=== PATIENT | female | born 1990 | race Caucasian/White ===

== ENCOUNTER 2022-11-29 03:29 | Outpatient (CLI) | payer BC, SELFPAY ==
[2022-11-29 16:01] LABS: Abs Immature Grans 0.02 10^3/uL (0.0-0.06); Absolute Basophil Count 0.05 10^3/uL (0.0-0.2); Absolute Eosinophil Count 0.15 10^3/uL (0.0-0.7); Absolute Lymphocyte Count 1.83 10^3/uL (1.2-3.4); Absolute Monocyte Count 0.98 10^3/uL (0.1-0.8); Absolute Neutrophil Count 4.96 10^3/uL (1.2-6.7); Basophils % 0.6; Eosinophils % 1.9; HCT 39.1 % (36.0-46.0); HGB 13.2 g/dL (11.2-15.7); Immature Grans % 0.3; Lymphocytes % 22.9; MCH 29.1 pg (27.0-33.0); MCHC 33.8 % (32.0-36.0); MCV 86 fL (80-95); MPV 10.7 fL (8.0-11.0); Monocytes % 12.3; Platelet Count 233 10^3/uL (130-400); RBC 4.54 10^6/uL (3.93-5.22); RDW 12.7 % (11.7-14.6); WBC 7.99 10^3/uL (4.4-10.8)
[2022-11-29 16:06] LABS: Panorama Kit Sent via Fed Ex
[2022-12-01 11:00] LABS: Hepatitis B Surface Ag Negative (Negative)
[2022-12-01 11:11] LABS: Varicella IgG Antibody Positive (See Note)
[2022-12-01 11:17] LABS: Rubella IgG Ab (UVM) Positive (See Note)
[2022-12-01 11:30] LABS: Hepatitis C Ab w Rflx HCV PCR Negative (Negative)
[2022-12-01 12:01] LABS: HIV-1/2 Ag & Ab Screen Negative (Negative)
[2022-12-01 19:33] LABS: Syphilis IgG w/Reflex Nonreactive (Nonreactive)
== END 2022-11-29 03:30 | disposition home or self-care (01) ==
LOC: LBO 03:29
PROVIDERS: Advanced Practice Midwife; Visit Provider Advanced Practice Midwife
DX: Z34.01 Encounter for supervision of normal first pregnancy, first trimester (principal)
CPT/HCPCS: 36415; 86787; 86803; 86850; 86900; 86901; 87340; 87389; 85025; 86762; 86780

== ENCOUNTER 2022-11-29 14:40 | Outpatient (REF) | payer BC, SELFPAY ==
[2022-11-29 19:39] LABS: *AMPHETAMINES SCREEN URINE Negative (Negative); *BARBITURATES SCREEN URINE Negative (Negative); *BENZODIAZEPINES SCREEN URINE Negative (Negative); Cannabinoids THC Negative (Negative); Cocaine Screen,Urine Negative (Negative); METHADONE URINE SCREEN Negative (Negative); OPIATES URINE SCREEN Negative (Negative)
[2022-11-29 19:44] LABS: Tricyclic Antidepressants Negative (Negative)
[2022-12-01 13:31] LABS: Chlamydia Result Negative (Negative); GC Result Negative (Negative)
[2022-12-07 12:20] LABS: Buprenorphine Negative ng/mL (Cutoff: 5.0); Norbuprenorphine Negative ng/mL (Cutoff: 2.5)
== END 2022-11-29 14:41 | disposition home or self-care (01) ==
LOC: LBN 14:40
PROVIDERS: Visit Provider Advanced Practice Midwife
DX: N89.8 Other specified noninflammatory disorders of vagina; O26.891 Other specified pregnancy related conditions, first trimester
CPT/HCPCS: 80307; 80348; 87491; 87591; 87086; 87480; 87510; 87660

== ENCOUNTER → 2023-02-02 00:52 | Outpatient (CLI) | payer BC, SELFPAY ==
--- NOTE | 2023-02-02 06:32 | DI.US_ITS ---
Exam(s) US OB 2-3 TRIMESTER W MOD EXAM: US OB 2-3 TRIMESTER W MOD CLINICAL HISTORY: ,Z34.90. TECHNIQUE: Transabdominal obstetrical ultrasound was performed. COMPARISON: US POCUS EXAM from 11/15/2022 FINDINGS: There is a single viable intrauterine gestation with cardiac activity identified-140 bpm. Amniotic fluid: There is a normal amount of amniotic fluid. Placental location: The placenta is posterior fundal grade 0,with no evidence of placenta previa. ANATOMY: A 3 vessel umbilical cord is seen. A four-chamber cardiac view was obtained. Right and left ventricular outflow tracts were imaged. There are no obvious abnormalities of the spinal column evident. There is no obvious abnormal ity of the anterior abdominal wall. stomach and urinary bladder are identified and there is no evidence of hydronephrosis. No abnormalities of the upper lip region are identified. Due to the deep cephalic lie of the fetus during today's study was difficult to adequately visualize intracranial structures such as the ventricles and posterior fossa. Dating parameters place this at approximately 19 weeks and 5 days gestational age. BPD measures 19 weeks and 5 days HC measures 19 weeks and 4 days AC measures 19 weeks and 6 days FL measures 19 weeks and 6 days Estimated weight is 314 gm-0 pounds 11 ounces Fetus is at the 76th percentile on the Hadlock scale. IMPRESSION:: Single viable intrauterine gestation which is approximately 19 weeks and 5 days gestati onal age, implying an PATITO of 06/24/2023. There are no obvious anomalies evident on today's study. However, we were not able to adequatel y visualize intracranial structures the fetus due to the persistent deep cephalic lie of the fetus du ring today's study. Patient is to return for better visualization of the brain/lateral ventric les/posterior fossa structures. The placenta is posterior fundal grade 0, with no evidence of placenta previa. There is a normal amount of amniotic fluid. DATA REPOSITORY:
== END ==
PROVIDERS: Visit Provider Advanced Practice Midwife
DX: Z34.92 Encounter for supervision of normal pregnancy, unspecified, second trimester (principal)
CPT/HCPCS: 76805

== ENCOUNTER 2023-02-02 01:21 | Outpatient (CLI) | payer BC, SELFPAY ==
[2023-02-04 13:09] LABS: Calculated age at EDD 32 years; GA used in risk estimate Dates estimate; IVF Pregnancy No; Initial or repeat testing Initial testing; Insulin dependent diabetes No; Maternal Weight 160 lbs; Number of Fetuses 1; Prev Pregnancy w/NTD No; RECOMMENDED FOLLOW UP None.; Results Summary Normal risk
== END 2023-02-02 01:22 | disposition home or self-care (01) ==
LOC: LBO 01:22
PROVIDERS: Visit Provider Advanced Practice Midwife
DX: Z34.92 Encounter for supervision of normal pregnancy, unspecified, second trimester (principal); Z36.89 Encounter for other specified antenatal screening; Z3A.19 19 weeks gestation of pregnancy
CPT/HCPCS: 36415; 82105

== ENCOUNTER 2023-03-30 01:30 | Outpatient (CLI) | payer BC, SELFPAY ==
[2023-03-30 09:43] LABS: HCT 37.2 % (36.0-46.0); HGB 12.2 g/dL (11.2-15.7); MCH 28.6 pg (27.0-33.0); MCHC 32.8 % (32.0-36.0); MCV 87 fL (80-95); MPV 10.2 fL (8.0-11.0); Platelet Count 215 10^3/uL (130-400); RBC 4.27 10^6/uL (3.93-5.22); RDW 12.8 % (11.7-14.6); RDW-SD 40.8 fL; WBC 10.67 10^3/uL (4.4-10.8)
[2023-03-30 10:17] LABS: Glucose,1 Hr (Glucola) 88 mg/dL (80-140)
== END 2023-03-30 01:31 | disposition home or self-care (01) ==
LOC: LBO 01:30
PROVIDERS: Advanced Practice Midwife; Visit Provider Advanced Practice Midwife
DX: Z34.92 Encounter for supervision of normal pregnancy, unspecified, second trimester (principal); Z3A.27 27 weeks gestation of pregnancy
CPT/HCPCS: 36415; 82950; 85027

== ENCOUNTER → 2023-06-01 00:47 | Outpatient (CLI) | payer BC, SELFPAY ==
--- NOTE | 2023-06-01 07:45 | DI.US_ITS ---
Exam(s) US OB LUZ WEIGHT EXAM: US OB LUZ WEIGHT CLINICAL HISTORY: measuring size less than dates,O26.849. TECHNIQUE: Transabdominal obstetrical ultrasound was performed. COMPARISON: US US OB F/U FACIAL/LVOT/RVOT from 02/08/2023 FINDINGS: There is a single viable intrauterine gestation with cardiac activity identified-137 bpm The fetus is presently in cephalic position . Amniotic fluid: There is a normal amount of amniotic fluid with an LUZ of 12.09cm. Placental location: The placenta is posterior grade 2. [address] this at approximately 36 weeks and 1 day gestational age, implying PATITO of 06/28/2023. BPD measures 36 weeks and 6 days HC measures 37 weeks and 3 days AC measures 34 weeks and 6 days FL measures 35 weeks and 1 day Estimated weight is 2673 gm-5 pounds 14 ounces Fetus is at the 29th percentile on the Hadlock scale. IMPRESSION:: Viable 3rd trimester gestation, as described above. DATA REPOSITORY:
== END ==
PROVIDERS: PCP Student in an Organized Health Care Education/Training Program; Visit Provider Advanced Practice Midwife
DX: O26.843 Uterine size-date discrepancy, third trimester (principal); Z3A.36 36 weeks gestation of pregnancy
CPT/HCPCS: 76816

== ENCOUNTER 2023-06-02 16:10 | Outpatient (REF) | payer BC, SELFPAY | END 2023-06-02 16:11 | disposition home or self-care (01) | LOC: LBN 16:10 | PROVIDERS: PCP Student in an Organized Health Care Education/Training Program; Visit Provider Advanced Practice Midwife | DX: Z34.93 Encounter for supervision of normal pregnancy, unspecified, third trimester (principal); Z36.85 Encounter for antenatal screening for Streptococcus B; Z3A.36 36 weeks gestation of pregnancy | CPT/HCPCS: 87081 ==

== ENCOUNTER → 2023-06-10 00:36 | Outpatient (CLI) | payer BC, SELFPAY ==
--- NOTE | 2023-06-10 06:45 | DI.US_ITS ---
Exam(s) US OB LUZ WEIGHT EXAM: US OB LUZ WEIGHT CLINICAL HISTORY: measuring 32 cm at 37 weeks,inconsistent size,dates,O26.843. TECHNIQUE: Transabdominal obstetrical ultrasound was performed. COMPARISON: US US OB LUZ WEIGHT from 06/01/2023 FINDINGS: There is a single viable intrauterine gestation with cardiac activity identified-135 bpm The fetus is presently in cephalic position . Amniotic fluid: There is a low normal amount of amniotic fluid with an LUZ of 7.63cm. The previous r eading on 06/01/2023 was 12.09 cm Placental location: The placenta is anterior/posterior/fundal, grade 2,with no evidence of placenta p revia. Dating parameters place this at approximately 37 weeks gestational age, implying PATITO of . BPD measures 37 weeks and 4 days HC measures 37 weeks and 6 days AC measures 36 weeks and 0 days FL measures 36 weeks and 3 days Estimated weight is 2943 gm-6 pounds 8 ounces Fetus is at the 30th percentile on the Hadlock scale. IMPRESSION:: Viable 3rd trimester gestation, as described above. Fetus is at the 30th percentile on the Hadlock scale. The amount of amniotic fluid is low normal with LUZ of 7.63 cm DATA REPOSITORY:
== END ==
PROVIDERS: PCP Student in an Organized Health Care Education/Training Program; Visit Provider Advanced Practice Midwife
DX: O26.843 Uterine size-date discrepancy, third trimester (principal); Z3A.37 37 weeks gestation of pregnancy
CPT/HCPCS: 76816

== ENCOUNTER 2023-06-15 12:21 | Outpatient (CLI) | payer BC, SELFPAY ==
[2023-06-15 15:39] VITALS: BP 122/61; PULSE 62
[2023-06-15 16:39] VITALS: BP 122/61; PULSE 62; TEMP 36.6
--- NOTE | 2023-06-21 17:26 | W.OBNST ---
Date of service: 06/21/23 Time of Service: 17:26 NST Evaluation Reason for NST Reasons for Nonstress Test: OTHER, SEE COMMENT Reason for NST Other: No increase in fundal height, LUZ Gestational Age Gestational Age in Weeks and Days: 38 Weeks and 2Days Test and Monitor Explained Test/Monitor Explained: Test Explained, Monitor Explained and Patient Verbalized Understanding Vital Signs Blood Pressure: 122/61 Pulse: 62 Temperature: 97.9 F NST Information Date on Monitor: 06/15/23 Time on Monitor: 16:30 Date off Monitor: 06/15/23 Time off Monitor: 16:50 Total Time on Monitor: 20 NST Interventions: Notify Provider and Other Contraction Frequency: 0 NST Evaluation Patient States Movement: Present FHR Baseline: 140 Variability: Moderate 6-25 bpm Accelerations: 15x15 Decelerations: None NST Results: Reactive Note Ultrasound Done: LUZ (exam performed by Jackie Garsia CNM) Indication: Other (size less than dates) Total LUZ: 8.1 Coding for LUZ w/NST: Completed Exam. NST Note Note: Santa is here for NST due to size less than dates. reactive NST. NST Reviewed and Verified by: Karolyn May
[2023-06-21 17:27] VITALS: BP 122/61; PULSE 62; TEMP 36.6
--- NOTE | 2023-06-29 09:56 | W.OBNST ---
Date of service: 06/15/23 Time of Service: 16:00 NST Evaluation Reason for NST Reasons for Nonstress Test: OTHER, SEE COMMENT Reason for NST Other: No increase in fundal height, LUZ Gestational Age Gestational Age in Weeks and Days: 39 Weeks and 5Days Test and Monitor Explained Test/Monitor Explained: Test Explained, Monitor Explained and Patient Verbalized Understanding Vital Signs Blood Pressure: 122/61 Pulse: 62 Temperature: 97.9 F NST Information Date on Monitor: 06/15/23 Time on Monitor: 16:30 Date off Monitor: 06/15/23 Time off Monitor: 16:50 Total Time on Monitor: 20 NST Interventions: Notify Provider and Other Contraction Frequency: 0 NST Evaluation Patient States Movement: Present FHR Baseline: 140 Variability: Moderate 6-25 bpm Accelerations: 15x15 Decelerations: None NST Results: Reactive Note Ultrasound Done: LUZ Total LUZ: 8.1 Coding for LUZ w/NST: Completed Exam and Presentation Presentation Results: cephalic Coding for Presentation w/NST: Completed Exam. NST Note NST Reviewed and Verified by: Sangeetha Garsia
[2023-06-29 09:58] VITALS: BP 122/61; PULSE 62; TEMP 36.6
== END 2023-06-15 16:58 ==
LOC: BCD 12:22 → OBS 15:32
PROVIDERS: PCP Student in an Organized Health Care Education/Training Program; Visit Provider Advanced Practice Midwife
DX: O26.843 Uterine size-date discrepancy, third trimester (principal); Z3A.38 38 weeks gestation of pregnancy
CPT/HCPCS: 59025

== ENCOUNTER 2023-06-25 10:22 | Inpatient (IN) | payer BC, SELFPAY ==
[2023-06-25] VITALS (70 sets, daily range): BP systolic 101–131; BP diastolic 50–83; PULSE 64–111; RESP 16; TEMP 36.3–36.6; O2SAT 97–100; BMI 26.7
[2023-06-25 10:58] LABS: HGB 13.1 g/dL (11.2-15.7); MCHC 32.8 % (32.0-36.0); MCV 89 fL (80-95); MPV 12.3 fL (8.0-11.0); Platelet Count 185 10^3/uL (130-400); RBC 4.52 10^6/uL (3.93-5.22); RDW 12.6 % (11.7-14.6); RDW-SD 40.9 fL; WBC 13.18 10^3/uL (4.4-10.8)
--- NOTE | 2023-06-25 11:34 | HPE_ITS ---
Date of service: 06/25/23 Time of Service: 10:15 Assessment and Plan Assessment and plan (1) Normal labor: Status: Acute Assessment and plan: A: 32 yo G1 @ 39+5 wks, spontaneous onset labor Category 1 tracing, GBS neg, AGA size No increased risk for SD or PPH; benign AP course Pt attended by FOB and recreation adviser Has been taking buspirone for depression/anxiety P: Admit to BC, CBC, T&S Pt desires unmedicated experience Comfort measures as desires, intermittent auscultation Expectant management, anticipate OB-HPI Labor/Delivery History of Present Illness Reason for Visit: Labor Chief Complaint: Uterine Contractions (contractions began 2200 last night, now stronger. No ROM or bleeding or vomiting.). PATITO Calculator Estimated Delivery Date Method Current WG Current Estimate 06/27/23 LMP (Certain) 39w 5d Other Estimates 06/25/23 Ultrasound #1 40w 0d History of Present Expected Delivery Route/Plan - CNM FOB/ - Gaurang Nini (first baby) BG Hiring a recreation adviser, took empowered birthing classes, epidural if she needs it. Gaurang would like to catch the baby. GBS negative Specific Issues/Plan 1. Anxiety/depression, takes Buspirone, advised to stop prn Ativan while . 1a. Wellbutrin escribed 11/16/[address] Lani Syed at [facility] for consultation. Met with Santa Rowell. 2. Panorama drawn 11/29- low risk x5, undecided at this time about CF/SMA. AFP=normal risk 3. Covid infection at 13 weeks gestation - paxlovid escribed 4. Anatomy incomplete, repeated and normal brain images obtained 5. US for size date discrepency 36 weeks LUZ 12.09 EFW 29% 5a. US for size date 06/09/23 EFW 30% LUZ 7.63 5b. NST at 38 wks reactive, LUZ=8.1 Assessment: History Reviewed & Current Review of Systems Narrative: ROS completed and noncontributory other than HPI PFSH All Active Problems (Updated 06/25/23 @ 11:38 by Sangeetha Garsia) Normal labor (Acute) Pelvic floor weakness in female (Acute) (Acute) Generalized anxiety disorder (Acute) Adjustment disorder with depressed mood (Acute) Medical History (Updated 06/25/23 @ 11:38 by Sangeetha Garsia) Uterine size date discrepancy Vaginal discharge during Size of fetus inconsistent with dates in third trimester Family History (Updated 06/17/23 @ 16:08 by Kelsea Rowell) Mother Hypertension Depression Anxiety Father Alcohol use disorder Paternal Grandfather Stroke Maternal Grandfather Aneurysm Paternal Grandmother Aneurysm Alcohol use disorder Substance use disorder Maternal Grandmother Parkinson disease Social History (Updated 06/17/23 @ 16:05 by Kelsea Rowell) Smoking/Tobacco Use Status: Never Second Hand Exposure: No Smoking risk assessment performed?: Yes Alcohol Intake: former Drug use: Never Adopted: No Caregiver/Support person: No Foster care: No Household members: spouse Housing: house Communication Needs: Corrective Lenses Education Level: master's degree Do you need help understanding health information?: Never current occupation: [employer] Pets and animals: Yes (2 Dogs) Sexually active: Yes Do you think of yourself as: bisexual Current gender identity: female What is your relationship status?: How often do you talk on the phone with friends or family?: three or more times per week How often do you get together with friends or relatives?: once per week Do you belong to any clubs or organized social groups?: yes Panel score (0-1 are the most socially isolated patients): 3 What type of physical activity do you participate in: bicycling, weight lifting, running and yoga Duration: 45-60 minutes/day Frequency: 3-4 times per week Paula/Nondenominational: L[employer] Special paula needs: No Seatbelt use: always Helmet use: Yes Drive intox or ride w/intox cmv driver: No History History 1 Para 0 Hx # Term Pregnancies 0 Multiple births 0 Hx # Pregnancies 0 Ectopic pregnancies 0 AB induced 0 Hx Number of Living Children 0 AB spontaneous 0 Meds Allergies and Home Medications Allergies Allergy/AdvReac Type Severity Reaction Status Date / Time cashew nut Allergy Other (See Verified 06/23/23 15:27 Comment) Home Medications Medication Instructions Recorded Confirmed Type buspirone 15 mg tablet 15 mg PO BID 11/15/22 06/15/23 History epinephrine 0.3 mg/0.3 mL 0.3 mg IM ONCE 11/15/22 06/15/23 History injection, auto-injector vitamin#30 30 mg iron-10 cap PO 11/15/22 06/15/23 History mg iron-folic acid 1 mg-omg3 capsule breast pump (Baby Breast #1 ea 05/26/23 06/15/23 Rx Pump) bupropion HCl 150 mg 24 hr tablet, See Rx Instructions .Route 06/21/23 Rx extended release .COMPLEX #30 tabs Exam Physical Exam Vital signs: Temp 97.3 F L 06/25/23 10:30 Vital Signs Reviewed: Yes Detailed Labor and Delivery Exam Dilation: 5 (per RN exam) Effacement (%): 80 station: -2 Cervix position: mid TORRES Score(Cervical Ripeness Score): 8 Amniotic Membrane Status: Intact Contraction Frequency(min): q3-4 Fetus A Heart Rate Baseline: 115 Monitor Accelerations: 15 X 15 Monitor Decelerations: None Variability: Moderate (6-25 BPM) Categories: Category I Est. Weight: 7 lb 0.877 oz Est. Weight: 3200 gms HEENT Exam HEENT Exam: Normal Neck Exam Neck Exam: Normal Chest/Brest/Axilla Exam Chest Exam: Normal Breast Exam Breast Exam: Not Done Respiratory Exam Respiratory Exam: Normal Cardiovascular Exam Cardiovascular Exam: Normal Abdominal Exam Abdominal Exam: Normal (gravid, nontender) Rectal Exam Rectal Exam: Normal Exam Exam: Normal Extremities Exam Extremities Exam: Normal Back/Spine/Pelvis Exam Back Exam: Normal Pelvis Adequate: Yes Skin Exam Skin Exam: Normal Neurological Exam Neurological Exam: Normal Psychiatric Exam Psychiatric Exam: Normal Results Results Group Beta Strep: Negative Blood Type: A+ Rubella Status: Immune Varicella Immunity: Immune Abnormal Lab Findings: Abnormal Labs 06/25/23 10:40 WBC 13.18 H MPV 12.3 H Risk Assessment Risk for Shoulder Dystocia Historical/Initial OB: NEGATIVE FOR: Pelvic Abnormality, Pre- BMI>30, Previous Shoulder Dystocia or Previous Macrosomia 36 Weeks: NEGATIVE FOR: Current Gestational DM, EFW>4500gms or Maternal Weight Gain>40lbs Increased Risk?: No Delivery Plan @ 36wks: Risk for Pre-Eclampsia Date Initiated/Initials: Km 11/29/22 Yes, if one or more: NEGATIVE FOR: Hx Pre-E/Gest HTN, Chronic HTN, Multiple Gestation, Pre-gestational DM, Renal Disease, Systemic Lupus or APA Syndrome Yes, if 2 or more: POSITIVE FOR: Nulliparity; NEGATIVE FOR: Age>= 35 yrs, >10yr btwn pregnancies, BMI>30, ethinicty, Mother/Sister w/ Pre-E or Previous IUGR Risk for Post- Hemorrhage Initial: NEGATIVE FOR: Multiple Gestation, Previous PPH, Known Clotting Deficiency, Grand Multiparity or Anticoagulation 36 Weeks: NEGATIVE FOR: Anemia, hgb<10, Low platelets(thrombocytopenia), Gestational HTN or Pre-E, Polyhydraminios or EFW>4500gms At Risk?: No Counseled re: Active Management: Yes Risks Reviewed Risks Reviewed Upon Admission: Yes
--- NOTE | 2023-06-25 13:13 | W.PM.OBNL1 ---
Date of service: 06/25/23 Time of Service: 13:13 Pelvic Exam Dilation: 2.5 (exam done by CNM prior to pt entering tub) Effacement (%): 80 station: -2 Cervix Position: posterior BISHOPS Score(Cervical Ripeness Score): 6 Assessment and Plan Assessment and plan (1) Normal labor: Status: Acute Assessment and plan: Cervical exam revision per CNM: 2-3/80% posterior, vtx -2, intact Scmhidt score @ 6, pt coping well with early labor discomfort Pt decided against tub until labor more advanced, ambulating well Objective Abnormal lab results 06/25/23 Range/Units 10:40 WBC 13.18 H (4.4-10.8) 10^3/uL MPV 12.3 H (8.0-11.0) fL Temp 97.3 F L 06/25/23 10:30 Laboratory Results WBC 13.18 10^3/uL (4.4-10.8) H 06/25/23 10:40 RBC 4.52 10^6/uL (3.93-5.22) 06/25/23 10:40 Hgb 13.1 g/dL (11.2-15.7) 06/25/23 10:40 Hct 40.0 % (36.0-46.0) 06/25/23 10:40 MCV 89 fL (80-95) 06/25/23 10:40 MCH 29.0 pg (27.0-33.0) 06/25/23 10:40 MCHC 32.8 % (32.0-36.0) 06/25/23 10:40 RDW 12.6 % (11.7-14.6) 06/25/23 10:40 Plt Count 185 10^3/uL (130-400) 06/25/23 10:40 MPV 12.3 fL (8.0-11.0) H 06/25/23 10:40 ABO/Rh A Positive 06/25/23 10:40 Antibody Screen NEGATIVE 06/25/23 10:40
--- NOTE | 2023-06-25 19:26 | PGE_ITS ---
Date of service: 06/25/23 Time of Service: 19:26 Informed Consent Informed Consent: Regional Anesthesia and Risk,Benefits,Alternatives Discussed Pelvic Exam Dilation: 4 Effacement (%): 90 station: -1 Cervix Position: mid Consistency: soft BISHOPS Score(Cervical Ripeness Score): 10 Contractions Monitor Mode: Palpation Contraction Frequency(min): q2-4 Intensity: Moderate Fetus A Heart Rate Baseline: 140 Variability: Moderate (6-25 BPM) Categories: Category I Accelerations: 15 X 15 Decelerations: None Amniotic Membrane Status: Intact Assessment and Plan Assessment and plan (1) Normal labor: Status: Acute Assessment and plan: A: Primipara requesting regional anesthesia Labor becoming active, category 1 tracing, membranes intact P: 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 She now feels she is tiring and would like an epidural after learning she is 4 cm dilated.
[2023-06-25] MEDS: Lactated Ringers 1,000 ML 125 ML IV (19:50)
[2023-06-25] MEDS: busPIRone 15 MG TAB PO (20:05)
[2023-06-25] MEDS: FentaNYL/ROPIvacaine 2 mcg/ml and 0.1% 200 ML CADD Cassette EP (20:45)
--- NOTE | 2023-06-25 20:56 | ANES.PREOP_ITS ---
General Info Date of Service Date Performed: 06/25/23 Height: 5 ft 11 in Weight: 87.09 kg Body Mass Index (BMI): 26.7 Meds Allergies and Home Medications Allergies Allergy/AdvReac Type Severity Reaction Status Date / Time cashew nut Allergy Other (See Verified 06/23/23 15:27 Comment) Home Medication Medication Instructions Recorded buspirone 15 mg tablet 15 mg PO BID 11/15/22 epinephrine 0.3 mg/0.3 mL 0.3 mg IM ONCE 11/15/22 injection, auto-injector vitamin#30 30 mg iron-10 cap PO 11/15/22 mg iron-folic acid 1 mg-omg3 capsule breast pump (Baby Breast #1 ea 05/26/23 Pump) bupropion HCl 150 mg 24 hr tablet, See Rx Instructions .Route 06/21/23 extended release .COMPLEX #30 tabs Current Visit Medications: Current Medications Generic Name Dose Route Start Last Admin Trade Name Freq PRN Reason Stop Dose Admin Bupropion HCl 150 mg 06/26/23 08:30 Bupropion-Xl 150 Mg Tabcr PO DAILY LUIS Buspirone HCl 15 mg 06/25/23 20:00 Buspirone 15 Mg Tab PO BID LUIS Fentanyl/Ropivacaine 200 ml 06/25/23 20:00 Fentanyl/Ropivacaine 2 Mcg/Ml And 0.1% 200 Ml Cadd Cassette EP DIRECTED LUIS Ringer's Solution 1,000 mls @ 125 mls/hr 06/25/23 20:00 IV INFUSION LUIS IV Miscellaneous Supplies 1 each 06/25/23 20:00 Iv Access IV DIRECTED LUIS Sodium Chloride 0 ml 06/25/23 19:53 Normal Saline Flush 10 Ml Syr IVP PRN PRN Sodium Chloride 0 ml 06/25/23 20:00 Normal Saline Flush 10 Ml Syr IVP BID LUIS Sodium Chloride 0 ml 06/25/23 19:53 Normal Saline 10 Ml Vial IJ DIRECTED PRN PFSH Active Problems Active Problems: Problem Status Onset Code Normal labor O80, Z37.9 Pelvic floor weakness in female N81.89 Z34.90 Generalized anxiety disorder F41.1 Adjustment disorder with depressed mood F43.21 Medical History Medical History (Updated 06/25/23 @ 11:38 by Sangeetha Garsia) Uterine size date discrepancy Vaginal discharge during Size of fetus inconsistent with dates in third trimester Tobacco Smoking/Tobacco Use Status: Never Second hand exposure: No Alcohol Alcohol Intake: former Substance Use Substance use: Never Prental History History 2 1 Para 0 Hx # Term Pregnancies 0 Multiple births 0 Hx # Pregnancies 0 Ectopic pregnancies 0 AB induced 0 Hx Number of Living Children 0 AB spontaneous 0 Vital Signs and Lab Results Vital Signs Most Recent Vital Signs in EMR: Most Recent Vital Signs Temp Pulse Resp BP Pulse Ox 36.6 C 111 H 16 124/82 100 06/25/23 17:30 06/25/23 20:53 06/25/23 17:30 06/25/23 20:53 06/25/23 20:51 Lab Results 06/25/23 10:40 Blood Type / Crossmatch: 2 Antibody Screen NEGATIVE 06/25/23 Complete Blood Count: 2 White Blood Count 13.18 10^3/uL (4.4-10.8) H 06/25/23 10:40 Red Blood Count 4.52 10^6/uL (3.93-5.22) 06/25/23 10:40 Hemoglobin 13.1 g/dL (11.2-15.7) 06/25/23 10:40 Hematocrit 40.0 % (36.0-46.0) 06/25/23 10:40 Platelet Count 185 10^3/uL (130-400) 06/25/23 10:40 Complete Metabolic Panel: 2 No Data to Display Liver Function Panel: 2 No Data to Display Coagulation Panel: 2 No Data to Display Cardiac Panel: 2 No Data to Display Arterial Blood Gas: 2 No Data to Display Venous Blood Gas: 2 No Data to Display Pancreas Panel: 2 No Data to Display Thyroid Panel: 2 No Data to Display Infectious Disease: 2 No Data to Display Blood Cultures: 2 No Data to Display Toxicology Panel: 2 No Data to Display Panel: 2 No Data to Display Anesthesia Assessment and Plan Anesthesia History Personal History: No History of Anesthesia Complications Family History: No Family History of Anesthesia Complications Exercise Tolerance Exercise Tolerance: Metabolic Equivalents>4 Pertinent Negatives Pertinent Negatives: No Symptoms of GERD Cardiac & Pulmonary Exam Cardiac Exam: Normal S1/S2 Heart Sounds Pulmonary Exam: Clear Bilateral Breath Sounds Implantable Cardiac Device Does patient have a Pacemaker or an ICD?: No Airway Exam Known Difficult Airway: No Mallampati Class: 1 Mouth Opening: Normal (> 3cm) Thyromental Distance: Greater than 3 cm Neck Range of Motion: Full ROM Neck Circumference: Normal Teeth Condition: Normal Dentition ASA Classification ASA Score: ASA 2 Emergency Case?: No NPO Status NPO Status: Unable to Assess Status Status: Confirmed (Full-Term, Laboring) Anesthesia Plan Resuscitation Status: Full Code Anesthesia Technique: Labor Epidural Airway Planned: Natural Airway Pain Management: Epidural Monitors Used: Standard Monitors
--- NOTE | 2023-06-25 20:58 | W.ANESNEU ---
Epidural/Spinal Catheter Date Performed: 06/25/23 Procedure Start: 20:20 Procedure Stop: 20:45 Requesting Provider: Sangeetha Garsia Procedure Location: Obstetrics (Rm 301) Reason Performed: Labor Epidural Standard Monitors Applied: ECG, Blood Pressure and SpO2 Patient Position: Sitting Sedation Given (Indicate Dose Given): No Sedation given Patient Mental Status: Awake Sterility: Hand Hygiene, Surgical Cap, Surgical Mask, Sterile Gloves, Sterile Drape/Sheet, Eye Protection and Chlorhexidine Procedure Location: L2-L3 Interspace Epidural Needle: Tuohy 18 Gauge Needle Length: 3.5 Inch Needle Approach: Midline Epidural Procedure: Skin Prepped, Sterile Drape Placed, 1% Lidocaine to skin and subcutaneous tissue with 25G needle, Tuohy Needle placed, STORMY to Saline Used, Epidural Catheter Placed, Negative Heme, Negative CSF Flow and Tuohy Needle Removed Catheter Placed?: Catheter Placed Test Dose (Indicate Dose Given): 3ml 1.5% Lidocaine with 1:200K Epinephrine Given and Negative Test Dose Loss of Resistance Depth (cm): 4 Catheter depth at skin (cm): 11 Dressing: Sorbaview Dressing Placed, Tegaderm Applied, Mastisol Used and Dressing reinforced with Tape Epidural Provider Bolus (Indicate Dose Given): Total Ropivacaine 0.1% with Fentanyl 2mcg/ml Given from pump. (ml) Dose:: 8cc Additives (Indicate Dose Given ): None Infusion Medication: Medication Infusion Began Medication Infusion: Ropivacaine 0.1% with Fentanyl 2mcg/ml Maintenance Infusion Rate (ml/hour): 11 PCEA Bolus Dose (ml): 5 Post Procedure Pain score (0-10): 1 Block Level: T7 Paresthesia: None Ultrasound: Used to john site Number of Attempts (See previous attempts in note section): 1 Procedure Tolerated: No Complications and Patient tolerated well Procedure Outcome: Successful Performed By: Gaurang Mosley
--- NOTE | 2023-06-25 21:45 | W.PM.OBNL1 ---
Date of service: 06/25/23 Time of Service: 21:45 Informed Consent Informed Consent: Regional Anesthesia and Risk,Benefits,Alternatives Discussed Contractions Monitor Mode: External Contraction Frequency(min): q3-5 Intensity: Moderate Fetus A Monitor: External (US) Heart Rate Baseline: 135 Variability: Moderate (6-25 BPM) Categories: Category I Accelerations: Present Decelerations: Early Amniotic Membrane Status: Intact Assessment and Plan Assessment and plan (1) Normal labor: Status: Acute Assessment and plan: A: Epidural anesthesia with good effect, active labor in primipara P: Encourage pt to rest/sleep Monitor for progress, consider AROM Anticipate Subjective Interval history since last seen: Epidural is providing good relief, pt resting comfortably
[2023-06-26] VITALS (26 sets, daily range): BP systolic 89–162; BP diastolic 56–76; PULSE 59–107; RESP 16; TEMP 36.4–36.6; O2SAT 98–99
--- NOTE | 2023-06-26 02:08 | W.PM.OBNL1 ---
Date of service: 06/26/23 Time of Service: 02:08 Informed Consent Informed Consent: Regional Anesthesia and Risk,Benefits,Alternatives Discussed Pelvic Exam Dilation: 8 Effacement (%): 100 station: +1 Position: ROP Consistency: soft Contractions Monitor Mode: External Contraction Frequency(min): q4-6 Intensity: Moderate/Strong Fetus A Monitor: External (US) Heart Rate Baseline: 140 Variability: Moderate (6-25 BPM) Categories: Category I Accelerations: Present Decelerations: Early Amniotic Membrane Status: Intact Assessment and Plan Assessment and plan (1) Normal labor: Status: Acute Assessment and plan: A: Active labor under effective epidural anesthesia Category 1 tracing, FOB bedside providing support P: Pt to continue resting, position changes to facilitate rotation & descent Offer AROM again if progress slows further Anticipate Objective Vital Signs Reviewed: Yes Subjective Interval history since last seen: Pt has been resting comfortably since the epidural was initiated, dozing and napping, changing positions in bed. Dicussed AROM with pt, she declines and wishes to rest and relax through the night, pt agrees to reconsider AROM in a few hours.
--- NOTE | 2023-06-26 03:46 | W.PM.OBNL1 ---
Date of service: 06/26/23 Time of Service: 03:48 Contractions Contraction Frequency(min): q2-3 Intensity: Moderate/Strong Fetus A Monitor: External (US) Heart Rate Baseline: 150 Variability: Minimal (1-5 BPM) Categories: Category II Decelerations: Variable (appearing recurrently at 0330, 20 second duration, allen @ 100) Amniotic Membrane Status: Ruptured Rupture Method: Spontaneous Amniotic Fluid: Meconium Date of Membrane Rupture: 06/26/23 Time of Membrane Rupture: 03:00 Assessment and Plan Assessment and plan (1) Normal labor: Status: Acute Assessment and plan: A: Transition, approaching 2nd stage Category 2 tracing x30 min d/t mild variables P: Adjust maternal position as indicated Anticipate initiation of pushing and delivery Objective Vital Signs Reviewed: Yes Subjective Interval history since last seen: Increasing feelings of rectal pressure.
[2023-06-26] MEDS: Oxytocin/Normal Saline 30 UNIT/500 ML BAG 95 UNITS IV (05:05)
--- NOTE | 2023-06-26 05:32 | OBVDS_ITS ---
Date of service: 06/26/23 Time of Service: 05:32 OB Labor/ Delivery Information Baby A Delivery Delivery Method: Spontaneaous Presentation: Cephalic Cephalic Position: Vertex Vertex Position: Right Occipital Anterior Breech Position: N/A Cord Description-Baby A: 3 Vessels, Nuchal Cord (loose x1) and Reduced (overhead) Amniotic Fluid: Meconium Estimated Blood Loss: 300 Delivery Outcome: Liveborn Transferred: Remains with Mother Note: Pt rested well for several hours after epidural anesthesia was inducted, experienced SROM of meconium stained fluids @ 0300 an hour after SVE showed she had progressed spontaneously to 8 cm dilation and descent of head to +1. Tracing had been category 1 throughout labor though at 0330 recurrent mild variable decels were noted. Pt's bladder was emptied via straight cath of 1000 ml urine after pt attempted but was unable to void completely on bedside commode, full dilation was noted and head had descended to +3. 2nd stage huddle as completed, changes in maternal position decreased the recurrence/frequency of variables per tracing. Coached pushing resulted in of a vigorous female over intact perineum. FOB assisted with delivery, loose nuchal cord was reduced overhead and shoulders delivered easily, bulb sx done on the field and FOB handed to mother's arms. pitocin bolus was started, cord ceased pulsations and was clamped then cut by FOB, Vidales placenta delivered intact with 3VC. 1st degree perineal laceration repaired under effective epidural anesthesia, no extensions or further deep or bleeding lacerations were visualized, superficial bilateral periurethral abrasions were noted and not repaired. Rubra was minimal, fundus firm below umbilicus, strong family bonding was observed, apgars 9/9, weight 2880 g ms. Providers Nurse Gang Ripsaw Operator: Sangeetha Garsia Rug Clipper: Gaurang Mosley Nurse: Adore Rodriguez Nurse: Lani Byers Labor/Delivery Information Number of Babies in Womb: 1 Steroids Given: None Reason Steroids Not Administered: N/A Group Beta Strep: Negative Antibiotics Administered: No Rubella Status: Immune Blood Type: A+ Varicella Immunity: Immune Maternal Complications: Prolonged Labor(>20hrs) Shoulder Dystocia: No Stages of Labor Onset of Labor Date: 06/24/23 Onset of Labor Time: 22:00 Complete Dilatation Date: 06/26/23 Complete Dilatation Time: 04:20 Labor - Stage 1 Duration: 30 hours and 20 minutes ROM Baby A: 06/26/23 ROM Baby A: 03:00 ROM Total Time- Baby A: [id number] Delivery Date-Baby A: 06/26/23 Infant Delivery Time-Baby A: 05:01 Labor Stage 2 Duration: 41 minutes Placenta Delivery Date-Baby A: 06/26/23 Placenta Delivery Time-Baby A: 05:09 Labor-Stage 3 Duration: 8 minutes Total Length of Labor-Baby A: 31 hours and 1 minutes Placenta Cultured: No Placenta Status: Delivered Baby A Infant Gender: Female Gestational Status: Term (39-41.6 wks) Gestational Age in Weeks/Days: 39 Weeks and 6 Days weight: 2880 lb Weight Comment: 2880 gms Score-1 Minute Interval(Baby A) Heart Rate-1 minute: 100 BPM or Greater Respiratory Effort- 1 minute: Spontaneous/Strong Cry Muscle Tone-1 minute: Active Movement Reflex Response-1 minute: Prompt Response Color-1 minute: Bluish Hands or Feet Score-5 Minute Interval(Baby A) Heart Rate- 5 minute: 100 BPM or Greater Respiratory Effort-5 minute: Spontaneous/Strong Cry Muscle Tone-5 minute: Active Movement Reflex Response-5 minute: Prompt Response Color-5 minute: Bluish Hands or Feet Total Score- 5 minute: 9
[2023-06-26] MEDS: Hamamelis Leaf/Glycerin 100 EACH BOX PR (08:36)
[2023-06-26] MEDS: Dibucaine 1% 28 GM TUBE TP (08:36)
[2023-06-26] MEDS: busPIRone 15 MG TAB PO ×2 (08:52→22:42)
[2023-06-26] MEDS: buPROPion-XL 150 MG TABCR PO (08:52)
--- NOTE | 2023-06-26 10:01 | W.ANESNEU ---
Epidural/Spinal Cath. Removal Date Performed: 06/26/23 Procedure Time: 10:02 Catheter Removal Type: Epidural Catheter Procedure Location: Obstetrics Patient Position: Sitting Catheter Removal Procedure: Dressing Removed, Catheter Removed without Resistance and Catheter Tip Intact Paresthesia: None Procedure Tolerated: No Complications and Patient tolerated well Procedure Outcome: Successful Procedure Comment:: Catheter removed by OB RN Performed By: Gaurang Mosley
--- NOTE | 2023-06-26 10:03 | W.ANESPOSTOP ---
Postoperative Evaluation Date, Time and Location Date Performed: 06/26/23 Time Performed: 10:03 Patient Location: Obstetrics Vital Signs Most Recent Imported Vital Signs: Most Recent Vital Signs Temp Pulse Resp BP Pulse Ox 36.6 C 71 16 107/58 L 98 06/25/23 17:30 06/26/23 10:02 06/26/23 08:30 06/26/23 10:02 06/26/23 10:02 Pain Score Most Recent Pain Score: Most Recent Pain Score Pain Level 0 06/26/23 08:30 Assessment Mental Status: Awake (Alert & Oriented to Patient Baseline) Airway and Respiratory Function: Patent airway with normal (patient baseline) respiratory exam Cardiovascular Function: Hemodynamically Stable Hydration Status: Adequately Hydrated Nausea & Vomiting: No Nausea or Vomiting Pain: Pain is tolerable per patient Peripheral Nerve Block: Other (Epidural cath removed, block resolved)
[2023-06-26] MEDS: Acetaminophen 325 MG TAB 650 MG PO ×3 (10:29→22:42)
[2023-06-26] MEDS: Ibuprofen 600 MG TAB PO ×3 (10:30→22:42)
[2023-06-26] MEDS: Docusate Sodium 100 MG CAP PO ×2 (10:30→22:42)
[2023-06-27] MEDS: Acetaminophen 325 MG TAB 650 MG PO ×2 (06:12→15:00)
[2023-06-27] MEDS: Ibuprofen 600 MG TAB PO ×2 (06:13→14:59)
[2023-06-27] MEDS: busPIRone 15 MG TAB PO (08:13)
[2023-06-27] MEDS: buPROPion-XL 150 MG TABCR PO (08:13)
[2023-06-27] MEDS: Docusate Sodium 100 MG CAP PO (08:13)
[2023-06-27 08:20] VITALS: BP 132/80; PULSE 68; RESP 16; TEMP 36.4; O2SAT 99
--- NOTE | 2023-06-27 11:16 | DSE_ITS ---
Date of service: 06/27/23 Time of Service: 11:16 DS: Diagnosis Discharge Diagnosis (1) Term of female : Status: Acute Asessment and Plan: Caring for baby independently. Pain is managed well with oral analgesics. Voiding without difficulty. well. A - stable mother and baby , Post day 1 P - Discharge to home today. Routine post instructions. [facility]. (2) Adjustment disorder with depressed mood: Status: Acute Asessment and Plan: Reviewed signs of post depression. Continue wellbutrin and buspar Discharge Plan Disposition Patient Disposition: Home Condition: Good Discharge Details Reason For Visit: Labor Admit Date/Time: 06/25/23 10:22 Admit Provider: Sangeetha Garsia Attending Provider: Sangeetha Garsia Primary Care Provider: Ellie Rosenberg Home Meds and New Rx's Prescriptions: No Action buspirone 15 mg tablet 15 mg PO BID epinephrine 0.3 mg/0.3 mL auto-injector 0.3 mg IM ONCE Rx Instructions: as a single dose; may repeat once PNV #[id number] 30 mg iron-10 mg iron-1 mg capsule PO (DME) breast pump [Baby Buddha Breast Pump] Device See Rx Instructions .Route Qty: 1 0RF Rx Instructions: As directed bupropion HCl 150 mg tablet extended release 24 hr See Rx Instructions .ROUTE .COMPLEX Qty: 30 0RF Dose Instruction: TAKE 1 TABLET BY MOUTH EVERY MORNING Rx Instructions: TAKE 1 TABLET BY MOUTH EVERY MORNING Discharge Instructions Stand Alone Forms: BC Instructions, BC Post Vaginal Deliver Activity:: Activity as Tolerated Equipment/Supplies:: No Equipment Needed Diet:: As Tolerated Discharge Orders Discharge Orders: Discharge Order (Routine); Ordered 06/27/23 Ordered By: Karolyn May OB:DS Summary Summary Vaginal Delivery Method: Spontaneaous Episiotomy Description: None Laceration Description: Perineal Laceration Extension: First Degree Contraception Discussed Contraception Discussed: Yes Contraceptive Plan: Undecided (considering paragard), [place] Gender-Baby A: Female weight: 2880 lb Status at Discharge Functional status at discharge: independent ambulation Overall status at discharge: patient is back to baseline Mental Status: mental status grossly normal Speech and Movement: speech and movement normal Mood: congruent mood Affect: normal affect Quality:SDOH Health Related Social Needs: No Data to Display Exam Physical Exam Vital signs: Temp Pulse Resp BP Pulse Ox 97.5 F L 68 16 132/80 99 06/27/23 08:20 06/27/23 08:20 06/27/23 08:20 06/27/23 08:20 06/27/23 08:20 Vital Signs Reviewed: Yes Constitutional Constitutional: no acute distress HEENT Exam HEENT Exam: Normal Respiratory Exam Respiratory Exam: Normal Cardiovascular Exam Cardiovascular Exam: Normal Fundal Exam Fundus: Below Umbilicus and Firm Rectal Exam Rectal Exam: Normal Extremities Exam Extremity Exam: Normal PFSH All Active Problems (Updated 06/27/23 @ 11:16 by Karolyn May CNM) Term of female (Acute) Normal labor (Acute) Pelvic floor weakness in female (Acute) (Acute) Generalized anxiety disorder (Acute) Adjustment disorder with depressed mood (Acute) Medical History (Updated 06/27/23 @ 11:16 by Karolyn May CNM) Uterine size date discrepancy Vaginal discharge during Size of fetus inconsistent with dates in third trimester Family History (Updated 06/17/23 @ 16:08 by Kelsea Rowell) Mother Hypertension Depression Anxiety Father Alcohol use disorder Paternal Grandfather Stroke Maternal Grandfather Aneurysm Paternal Grandmother Aneurysm Alcohol use disorder Substance use disorder Maternal Grandmother Parkinson disease Social History (Updated 06/17/23 @ 16:05 by Kelsea Rowell) Smoking/Tobacco Use Status: Never Second Hand Exposure: No Smoking risk assessment performed?: Yes Alcohol Intake: former Drug use: Never Adopted: No Caregiver/Support person: No Foster care: No Household members: spouse Housing: house Communication Needs: Corrective Lenses Education Level: master's degree Do you need help understanding health information?: Never current occupation: [employer] Pets and animals: Yes (2 Dogs) Sexually active: Yes Do you think of yourself as: bisexual Current gender identity: female What is your relationship status?: How often do you talk on the phone with friends or family?: three or more times per week How often do you get together with friends or relatives?: once per week Do you belong to any clubs or organized social groups?: yes Panel score (0-1 are the most socially isolated patients): 3 What type of physical activity do you participate in: bicycling, weight lifting, running and yoga Duration: 45-60 minutes/day Frequency: 3-4 times per week Paula/Gnosticist: Worship Special paula needs: No Seatbelt use: always Helmet use: Yes Drive intox or ride w/intox rental car ferry driver: No History History 1 Para 0 Hx # Term Pregnancies 0 Multiple births 0 Hx # Pregnancies 0 Ectopic pregnancies 0 AB induced 0 Hx Number of Living Children 0 AB spontaneous 0 DS: Data Vitals/I&O Vitals and I&O: Vital Signs Temperature 97.5 F L 06/27/23 08:20 Temperature Source Oral 06/27/23 08:20 Pulse 68 06/27/23 08:20 Pulse Rhythm Regular 06/27/23 08:20 Respiratory Rate 16 06/27/23 08:20 Respiratory Depth Normal 06/26/23 20:36 Blood Pressure 132/80 06/27/23 08:20 Blood Pressure Mean 97 06/27/23 08:20 Pulse Oximetry 99 06/27/23 08:20 Oxygen Delivery Method Room Air 06/25/23 10:30 Oxygen Flow Rate 0 06/25/23 10:30 Pain Level 2 06/27/23 08:20 Intake & Output 06/26/23 06/26/23 06/27/23 11:59 23:59 11:59 Intake Total 495 / 495 Output Total 2650 / 2650 Balance -2154 / Intake: IV 495 / 495 Output: Urine 2650 / 2650 Other: Urine Color Straw Straw Urine Appearance Clear Urine Odor None Voiding Methods Toilet
[2023-06-27 12:15] VITALS: BP 112/70; PULSE 72; RESP 17; TEMP 36.5; O2SAT 97
== END 2023-06-27 16:40 | disposition home or self-care (01) | DRG 806 ==
PROVIDERS: Admitting Provider Advanced Practice Midwife; PCP Student in an Organized Health Care Education/Training Program; Visit Provider Advanced Practice Midwife
DX: O99.344 Other mental disorders complicating childbirth (principal); O63.9 Long labor, unspecified; Z37.0 Single live birth; Z3A.39 39 weeks gestation of pregnancy; O70.0 First degree perineal laceration during delivery; O69.81X0 Labor and delivery complicated by cord around neck, without compression, not applicable or unspecified; O77.0 Labor and delivery complicated by meconium in amniotic fluid; F43.23 Adjustment disorder with mixed anxiety and depressed mood
CPT/HCPCS: 36415; 85027; 86850; 86900; 86901; J3490

== ENCOUNTER 2023-12-13 02:28 | Outpatient (CLI) | payer BC, SELFPAY ==
[2023-12-13 08:25] LABS: HCT 42.4 % (36.0-46.0); HGB 13.7 g/dL (11.2-15.7); MCH 28.2 pg (27.0-33.0); MCHC 32.3 % (32.0-36.0); MCV 87 fL (80-95); MPV 9.7 fL (8.0-11.0); Platelet Count 263 10^3/uL (130-400); RBC 4.86 10^6/uL (3.93-5.22); RDW 11.9 % (11.7-14.6); RDW-SD 38.1 fL; WBC 7.56 10^3/uL (4.4-10.8)
[2023-12-13 09:24] LABS: Folate > 20.0 ng/mL (8.6-20.0)
[2023-12-13 09:27] LABS: ALT 19 U/L (14-59); AST 11 U/L (15-37); Albumin 3.9 g/dL (3.4-5.0); Alkaline Phosphatase 56 U/L (46-116); Anion Gap 6.2 mmol/L (3-11); BUN 9 mg/dL (7-18); Bilirubin, Total 0.59 mg/dL (0.2-1.0); CO2 30.8 mmol/L (21.0-32.0); Calcium 9.2 mg/dL (8.5-10.1); Calculated LDL 108 mg/dL (<100); Chloride 104 mmol/L (98-107); Cholesterol 196 mg/dL (<200); Estimated GFR 76.29 (mL/min/1.73m2); Glucose 88 mg/dL (74-106); HDL Cholesterol 83 mg/dL (40-60); Potassium 4.3 mmol/L (3.5-5.1); Sodium 141 mmol/L (136-145); TSH (W/Ref FT4) 1.25 uIU/mL (0.36-3.74); Total Protein 7.7 g/dL (6.4-8.2); Triglyceride 28 mg/dL (<150); Vitamin B12 972 pg/mL (193-986); Vitamin D 25 Total 29.8 ng/mL (30-100)
== END 2023-12-13 02:29 | disposition home or self-care (01) ==
LOC: LBO 02:28
PROVIDERS: Absent Provider Student in an Organized Health Care Education/Training Program; PCP Student in an Organized Health Care Education/Training Program; Referring Provider Student in an Organized Health Care Education/Training Program; Visit Provider Student in an Organized Health Care Education/Training Program
DX: Z91.018 Allergy to other foods (principal); F53.0 Postpartum depression; Z78.9 Other specified health status; R63.8 Other symptoms and signs concerning food and fluid intake; Z91.89 Other specified personal risk factors, not elsewhere classified; K90.9 Intestinal malabsorption, unspecified; Z13.220 Encounter for screening for lipoid disorders
CPT/HCPCS: 36415; 80053; 80061; 82306; 85027; 82607; 82746; 84443

== ENCOUNTER 2024-09-13 17:34 | Outpatient (REF) | payer BC, SELFPAY ==
--- NOTE | 2024-09-13 16:00 | PAPFT_PTH ---
PATIENT: [place] LOC: [facility] U#:[id number] AGE/SX: 33/F ROOM: RE09/13/[address]: Sangeetha Garsia CNM : 1990 BED: DIS: 09/13/2024 SPEC #: [id number] RECD: 09/13/24 17:48 STATUS: [place] REQ #: [id number] NATALI: 09/13/24 16:[address]: Sangeetha Garsia DEPT: [facility] Cytology RECD BY: Marium Benitez ENTERED: 09/13/24 17:49 SP TYPE: PAPFT OTHR DR: Cheryl Mayorga, SHAKEEL Tissues: 1 - CX/ENDOCX FOR PAP SMEARS Procedures: PAP THIN PREP/[facility] Screening HPV DNA PROBE Comments: [id number] (HPV 16 & 18/45)
== END 2024-09-13 17:35 | disposition home or self-care (01) ==
LOC: LBN 17:34
PROVIDERS: PCP Nurse Practitioner Family; Visit Provider Advanced Practice Midwife
DX: Z12.4 Encounter for screening for malignant neoplasm of cervix (principal)
CPT/HCPCS: 88142; 87624

== ENCOUNTER 2025-01-09 01:28 | Outpatient (CLI) | payer BC, SELFPAY ==
[2025-01-09 09:56] LABS: Abs Immature Grans 0.04 10^3/uL (0.0-0.06); HCT 43.1 % (36.0-46.0); HGB 14.3 g/dL (11.2-15.7); Immature Grans % 0.4 %; MCH 27.9 pg (27.0-33.0); MCHC 33.2 % (32.0-36.0); MCV 84 fL (80-95); MPV 9.9 fL (8.0-11.0); Platelet Count 277 10^3/uL (130-400); RBC 5.13 10^6/uL (3.93-5.22); RDW 13.1 % (11.7-14.6); RDW-SD 40.0 fL; WBC 11.10 10^3/uL (4.4-10.8)
[2025-01-09 19:18] LABS: HIV-1/2 Ag & Ab Screen Negative (Negative)
[2025-01-09 19:22] LABS: Hepatitis C Ab w Rflx HCV PCR Negative (Negative)
[2025-01-10 10:50] LABS: Rubella IgG Ab (UVM) Positive (See Note)
[2025-01-11 19:41] LABS: Syphilis IgG w/Reflex Nonreactive (Nonreactive)
== END 2025-01-09 01:29 | disposition home or self-care (01) ==
LOC: LBO 01:28
PROVIDERS: PCP Nurse Practitioner Family; Visit Provider Advanced Practice Midwife
DX: Z34.91 Encounter for supervision of normal pregnancy, unspecified, first trimester (principal)
CPT/HCPCS: 36415; 86787; 86803; 86850; 86900; 86901; 87340; 87389; 85025; 86762; 86780

== ENCOUNTER 2025-01-09 15:23 | Outpatient (REF) | payer BC, SELFPAY ==
[2025-01-10 16:44] LABS: Cannabinoids THC Negative (Negative)
[2025-01-11 12:45] LABS: Chlamydia Result Negative (Negative); GC Result Negative (Negative)
== END 2025-01-09 15:24 | disposition home or self-care (01) ==
LOC: LBN 15:23
PROVIDERS: PCP Nurse Practitioner Family; Visit Provider Advanced Practice Midwife
DX: Z34.91 Encounter for supervision of normal pregnancy, unspecified, first trimester
CPT/HCPCS: 80307; 87491; 87591; 87086